=== PATIENT | male | born 1975 | race Caucasian/White ===

== ENCOUNTER 2017-06-28 15:00 | Outpatient (RCR) | payer OTHER | END 2017-07-03 | disposition home or self-care (01) | PROVIDERS: ATTEND Nurse Practitioner Family | DX: M25.512 Pain in left shoulder (principal); Z98.890 Other specified postprocedural states ==

== ENCOUNTER → 2018-10-29 | Outpatient (CLI) | payer BC ==
[2018-10-31 12:58] VITALS: BP 120/60
--- NOTE | 2018-10-31 12:58 | Cardiology Stress Test Report ---
Stress Test Report Date of Procedure/Referring: Date of Procedure: Oct 29, 2018 PCP Rakesh Aguirre MD Admitting Physician Harshal Woods DO Baseline Heart Rate: 81 Baseline Blood Pressure: Blood Pressure Systolic: 120 Blood Pressure Diastolic: 60 Baseline EKG: Baseline EKG: normal sinus rhythm Summary/Conclusion: Summary: In summary, the patient started exercising with a baseline heart rate, blood pressure and EKG mentioned above Patient was able to exercise for a total of 8.09 minutes on Magdaleno protocol, 9.7 METs Maximum heart rate 170 Maximum blood pressure 176/67 Stress EKG Minimal nondiagnostic changes Recovery EKG Return to baseline Conclusion: 1. Good exercise tolerance for a total of 8.09 minutes on Magdaleno protocol, 9.7 METs, achieving 95 percent of maximum expected heart rate 2. Minimal nondiagnostic EKG changes with exercise returned to baseline during recovery 3. No arrhythmia was noted RAKESH AGUIRRE MD Oct 31, 2018 12:58
== END ==
LOC: CARD 14:12
PROVIDERS: ATTEND Internal Medicine Cardiovascular Disease
DX: R07.1 Chest pain on breathing (principal); R00.2 Palpitations; G47.33 Obstructive sleep apnea (adult) (pediatric)
CPT/HCPCS: 93017